=== PATIENT | male | born 1990 | race American Indian/Alaskan Native ===

== ENCOUNTER 2019-02-12 15:43 | Emergency (ER) | payer SELFPAY ==
--- NOTE | 2019-02-12 16:03 | Event Note ---
ED Screening Note Date of service: 02/12/19 Time: 16:00 ED Screening Note: Pt complains of dysuria and hematuria x yesterday. Denies penile discharge. +frequency This initial assessment/diagnostic orders/clinical plan/treatment(s) is/are subject to change based on patients health status, clinical progression and re- assessment by fellow clinical providers in the ED. Further treatment and workup at subsequent clinical providers discretion. Patient/guardian urged not to elope from the ED as their condition may be serious if not clinically assessed and managed. Initial orders include: UA STI check
[2019-02-12 17:36] LABS: Bilirubin,Urine NEG (Negative); Blood,Urine LG (Negative); Color,Urine Yellow (Yellow); Urobilinogen,Urine < 2.0 mg/dL (<2.0)
[2019-02-12 18:03] LABS: RBC,Urine > 182.0 /HPF (0.0-6.0); WBC,Urine > 182.0 /HPF (0.0-6.0)
[2019-02-12] MEDS ORDERED: ROCEPHIN/NS 1 GM/50 ML 1 GM/50 ML BAG IV ONE (18:41)
--- NOTE | 2019-02-12 18:50 | Emergency Department Report ---
ED Male HPI - General Chief complaint: Urogenital-Male Stated complaint: GROIN PAIN Time Seen by Provider: 02/12/19 18:38 Source: patient Mode of arrival: Ambulatory Limitations: No Limitations - History of Present Illness Initial comments: Patient is a 28-year-old male that presents emergency room with complaints of dysuria and urinary frequency. Patient is also complaining of pain to the base of his penis when he urinates. Patient states it is a stabbing pain. Patient denies burning sensation. Patient denies penile discharge. Patient denies testicular pain. Patient denies scrotal pain. Patient denies fever and chills. Patient states he is sexually active but he hasn't had sex for 4 weeks. Patient denies abdominal pain. Patient denies any other symptoms. MD Complaint: dysuria -: Sudden Location: penis Severity: severe Consistency: constant Improves with: rest Worsens with: urination blood in urine, dysuria. denies: discharge, swelling, mass, rash, urinary retention, fever, nausea/vomiting, incontinence - Related Data Sexually active: Yes Previous Rx's Medication Instructions Recorded Last Taken Type Butalb/Acetaminophen/Caffeine 1 each PO Q6H PRN #30 capsule 11/27/13 Unknown Rx [Fioricet 50-300-40 mg Capsule] Ondansetron [Zofran Odt] 4 mg PO TID PRN #30 tab.rapdis 11/27/13 Unknown Rx Azithromycin [Zithromax TAB] 2 tab PO ONCE #2 tablet 02/12/19 Unknown Rx Ciprofloxacin HCl [Ciprofloxacin 500 mg PO Q12HR 10 Days #20 tab 02/12/19 Unknown Rx TAB] Allergies Allergy/AdvReac Type Severity Reaction Status Date / Time No Known Allergies Allergy Verified 02/12/19 15:48 ED Review of Systems ROS: Stated complaint: GROIN PAIN Other details as noted in HPI Constitutional: denies: chills, fever Eyes: denies: eye pain, eye discharge, vision change ENT: denies: ear pain, throat pain Respiratory: denies: cough, shortness of breath, wheezing Cardiovascular: denies: chest pain, palpitations Endocrine: no symptoms reported Gastrointestinal: denies: abdominal pain, nausea, diarrhea Genitourinary: dysuria, frequency, hematuria. denies: urgency Musculoskeletal: denies: back pain, joint swelling, arthralgia Skin: denies: rash, lesions Neurological: denies: headache, weakness, paresthesias Psychiatric: denies: anxiety, depression Hematological/Lymphatic: denies: easy bleeding, easy bruising ED Past Medical Hx - Past Medical History Previous Medical History?: Yes Hx Headaches / Migraines: Yes - Surgical History Past Surgical History?: No - Family History Family history: no significant - Social History Smoking Status: Never Smoker Substance Use Type: None - Medications Home Medications: Home Medications Medication Instructions Recorded Confirmed Last Taken Type Butalb/Acetaminophen/Caffeine 1 each PO Q6H PRN #30 capsule 11/27/13 Unknown Rx [Fioricet 50-300-40 mg Capsule] Ondansetron [Zofran Odt] 4 mg PO TID PRN #30 tab.rapdis 11/27/13 Unknown Rx Azithromycin [Zithromax TAB] 2 tab PO ONCE #2 tablet 02/12/19 Unknown Rx Ciprofloxacin HCl [Ciprofloxacin 500 mg PO Q12HR 10 Days #20 tab 02/12/19 Unknown Rx TAB] ED Physical Exam - General Limitations: No Limitations General appearance: alert, in no apparent distress - Head Head exam: Present: atraumatic, normocephalic - Eye Eye exam: Present: normal appearance - ENT ENT exam: Present: mucous membranes moist - Neck Neck exam: Present: normal inspection - Respiratory Respiratory exam: Present: normal lung sounds bilaterally. Absent: respiratory distress - Cardiovascular Cardiovascular Exam: Present: regular rate, normal rhythm. Absent: systolic murmur, diastolic murmur, rubs, gallop - GI/Abdominal GI/Abdominal exam: Present: soft, normal bowel sounds - Rectal Rectal exam: Present: deferred - exam: Absent: testicular tenderness, urethral discharge, circumcision External exam: Present: normal external exam. Absent: erythema, swelling, lesions, lacerations, ecchymosis, bleeding - Extremities Exam Extremities exam: Present: normal inspection - Back Exam Back exam: Present: normal inspection - Neurological Exam Neurological exam: Present: alert, oriented X3 - Psychiatric Psychiatric exam: Present: normal affect, normal mood - Skin Skin exam: Present: warm, dry, intact, normal color. Absent: rash ED Course Vital Signs 02/12/19 02/12/19 15:49 19:25 Temperature 98.1 F 98.0 F Pulse Rate 66 70 Respiratory 16 14 Rate Blood Pressure 129/88 Blood Pressure 120/70 [Left] O2 Sat by Pulse 100 100 Oximetry - Reevaluation(s) Reevaluation #1: I discussed all results with patient. I discussed plan of care with patient. Patient agrees with plan of care. Patient is stable for discharge. Patient will be discharged home. Patient given discharge instructions. Patient voiced understanding of discharge instructions. 02/12/19 18:42 ED Medical Decision Making - Medical Decision Making Patient is a 28-year-old male that presents emergency room with complaints of dysuria and penile pain. Patient found to have a UTI. Patient treated p rophylactically for chlamydia and gonorrhea. Patient given a Rocephin injection here. Patient given Zithromax and Cipro to be taken as an outpatient. Patient stable for discharge. Patient discharged home. - Differential Diagnosis UTI. STD. Penile pain. Dysuria Critical care attestation.: If time is entered above; I have spent that time in minutes in the direct care of this critically ill patient, excluding procedure time. ED Disposition Clinical Impression: Dysuria UTI (urinary tract infection) Qualifiers: Urinary tract infection type: acute cystitis Hematuria presence: with hematuria Qualified Code(s): N30.01 - Acute cystitis with hematuria Disposition: - TO HOME OR SELFCARE Is pt being admited?: No Does the pt Need Aspirin: No Condition: Stable Instructions: Urinary Tract Infection in Men (ED), Dysuria (ED) Additional Instructions: Patient to follow-up with primary care in 2-3 days. Patient to follow-up with urologist in 2-3 days. Patient to return to ER if condition worsens. Patient to rest. Patient to increase water. Patient to take meds as directed. Patient's take Tylenol or ibuprofen when necessary for pain. Prescriptions: Ciprofloxacin HCl [Ciprofloxacin TAB] 500 mg PO Q12HR 10 Days #20 tab Azithromycin [Zithromax TAB] 2 tab PO ONCE #2 tablet Referrals: FELISHA DIEGO MD [Staff Physician] - 2-3 Days Time of Disposition: 18:51
[2019-02-12] MEDS ORDERED: ROCEPHIN IM ONE (18:56)
[2019-02-12] MEDS ORDERED: XYLOCAINE 1% MPF 5 mL INFILTRATI ONE (18:56)
[2019-02-12 19:27] VITALS: BP 120/70
== END 2019-02-12 19:27 | disposition home or self-care (01) ==
LOC: ED 15:43
DX: N39.0 Urinary tract infection, site not specified (principal); G43.909 Migraine, unspecified, not intractable, without status migrainosus
CPT/HCPCS: 81001; 96372; 99283; J0696